=== PATIENT | female | born 1965 | race Caucasian/White ===

== ENCOUNTER 2017-03-07 09:45 | Inpatient (IN) | payer BC ==
[2017-03-07] MEDS ORDERED: Bupivacaine HCl 0.5%/Epinephrine 1:200,000/PF 30 ml Vial ONE (11:11)
[2017-03-07] MEDS ORDERED: Heparin 5,000 UNITS/ML VIAL ONE (11:30)
[2017-03-07] MEDS ORDERED: Fentanyl 100 MCG/2 ML VIAL ONE ×4 (11:32→13:44)
[2017-03-07] MEDS ORDERED: Midazolam HCl 2 mg/2 ml Vial ONE (11:32)
[2017-03-07] MEDS ORDERED: Propofol 200 MG/20 ML VIAL ONE (11:56)
[2017-03-07] MEDS ORDERED: Lidocaine 2% PF 10 ML AMP (For Epidural Use) ONE (11:56)
[2017-03-07] MEDS ORDERED: Glycopyrrolate 0.2 MG/ML 5 ML SYRINGE ONE (11:56)
[2017-03-07] MEDS ORDERED: Ondansetron HCl/PF 4 MG/2 ML Vial ONE ×2 (11:56→14:53)
[2017-03-07] MEDS ORDERED: Dexamethasone 20 MG/5 ML VIAL ONE (11:56)
[2017-03-07] MEDS ORDERED: Ondansetron HCl/PF 4 MG/2 ML Vial IVP PRN ×2 (12:38→12:52)
[2017-03-07] MEDS ORDERED: Promethazine HCl 25 MG/ML VIAL SLOW IVP PRN (12:38)
[2017-03-07] MEDS ORDERED: Promethazine HCl 25 MG/ML VIAL IM PRN ×3 (12:38→14:59)
[2017-03-07] MEDS ORDERED: Dextrose 5% in Water 1,000 ML IV PRN (12:52)
[2017-03-07] MEDS ORDERED: Dextrose 50% Abboject 50 ML SYRINGE SLOW IVP PRN ×2 (12:52)
[2017-03-07] MEDS ORDERED: diphenhydrAMINE HCl 50 MG/ML 1 ML VIAL IVP PRN ×2 (12:52→14:59)
[2017-03-07] MEDS ORDERED: Hydrocodone-Acetamin 15 ML UDCUP PO PRN (12:52)
[2017-03-07] MEDS ORDERED: Dextrose 5% in Water 1,000 ML IV SCH (13:00)
[2017-03-07] MEDS ORDERED: Promethazine HCl 25 MG/ML VIAL ONE (13:11)
--- NOTE | 2017-03-07 13:29 | OP ---
PREOPERATIVE DIAGNOSIS: Morbid obesity. SURGEON: Freddy Figueroa M.D. PROCEDURE PERFORMED: Laparoscopic sleeve gastrectomy with intraoperative esophagogastroscopy. INDICATIONS: The patient is a 52-year-old female who has been morbidly obese, attempted multiple we ight loss programs without success. FINDINGS: A 38 Portuguese bougie used. PROCEDURE IN DETAIL: After informed consent was obtained, the patient was taken to the operating ro om and given general endotracheal anesthesia. She was placed in the supine position. The abdomen w as prepped and draped in the usual fashion. Local anesthesia infiltrated subcutaneously and deep. A 12 mm incision was performed approximately 8 inches below the xiphoid slightly to the left. Veres s needle inserted. Drop test performed. Pneumoperitoneum was created to a volume of 2 liters of ca rbon dioxide. Utilizing a bladeless 12 mm trocar and 0 degree laparoscope, direct visual entry in t he abdominal cavity was performed. Pneumoperitoneum was then created to a pressure of 15 mmHg. The patient placed in steep reverse Trendelenburg position. Samra liver retractor inserted. Left lobe of liver retracted superiorly. The pylorus identified, a 12 mm port placed on the right beneat h it and two 12s placed left subcostal. The omentum was taken off the greater curvature 5 cm from t he pylorus utilizing the LigaSure. Short gastrics divided with the LigaSure and left crura defined with the LigaSure. A 38 Portuguese bougie inserted and directed into the antrum. A linear 60 mm green load stapler used to divide the antrum to the bougie, a gold load along the bougie, a series of blue s through the angle of His. Intraoperative endoscopy was performed. The video endoscope inserted u nder direct vision. The staple line inspected. There was no bleeding. Staple line then tested by inflating the stomach with pressurized air under water. There was no air leak. Stomach decompresse d. Scope removed. The remnant stomach removed from the abdomen through the left lateral port site. The fascia closed with 0 Vicryl suture and the GraNee needle. Hemostasis was assured. Trocars an d retractors removed. The skin closed with interrupted 4-0 Rapide. Steri-Strips applied. Sterile bandage applied. The patient tolerated the procedure well and transferred to recovery in good condi tion. Sponge and needle count verified correct x2.
[2017-03-07] MEDS ORDERED: Naloxone HCl 0.4 mg/ml Vial IV PRN (14:59)
[2017-03-07] MEDS ORDERED: Fentanyl 5000 MCG/250 ML CADD IVPB PRN (14:59)
[2017-03-07] MEDS ORDERED: Zolpidem Tartrate 5 MG TAB PO PRN (14:59)
[2017-03-07] MEDS ORDERED: diphenhydrAMINE HCl 50 MG/ML 1 ML VIAL IM PRN (14:59)
[2017-03-07] MEDS ORDERED: diphenhydrAMINE HCl 25 MG CAP PO PRN (14:59)
[2017-03-07] MEDS ORDERED: Communication Order-Pharmacy FS SCH (15:00)
[2017-03-07] MEDS ORDERED: Fentanyl 20 MCG/ML 250 ML ONE (15:04)
[2017-03-07 16:51] VITALS: BMI 47.1
[2017-03-07] MEDS: D5 1/2 NS w/20 mEq KCL 1,000 ML IV SCH ×2 (18:34→21:11)
[2017-03-08] MEDS: Ondansetron HCl/PF 4 MG/2 ML Vial IVP PRN ×2 (02:12→10:11)
[2017-03-08] MEDS: D5 1/2 NS w/20 mEq KCL 1,000 ML IV SCH (02:16)
[2017-03-08 06:18] LABS: #Monocytes 0.8 thou/uL (0.11-0.59); #Neutrophils 5.7 thou/uL (1.40-6.50); %Basophils 0.1 % (0.0-1.0); %Eosinophils 0.2 % (0.0-10.0); %Lymphocytes 23.1 % (21.0-51.0); %Monocytes 9.7 % (0.0-10.0); Hematocrit 41.4 % (36.0-47.0); Mean Platelet Volume 7.5 fL (7.4-10.4); Red Blood Cell (RBC) Count 4.73 mill/uL (4.20-5.40); White Blood Cell (WBC) Count 8.5 thou/uL (4.8-10.8)
[2017-03-08 06:37] LABS: Anion Gap 12 mmol/L (10-20); BUN (Urea Nitrogen) 10 mg/dL (9.8-20.1); Calc. Creatinine Clearance 153 mL/min (70-130); Calcium 8.8 mg/dL (7.8-10.44); Carbon Dioxide 26 mmol/L (22-29); Chloride 105 mmol/L (98-107); Estimated GFR-MDRD 72
[2017-03-08] MEDS ORDERED: Enoxaparin Sodium 40 MG/0.4 ML SYRINGE SC SCH (09:00)
[2017-03-08] MEDS: Pantoprazole 40 MG VIAL IVP SCH ×2 (10:12→10:21)
--- NOTE | 2017-03-08 10:30 | RAD ---
LIMITED UPPER GI WITH 15 ML ORAL GASTROGRAFIN: Date: 03/08/17 HISTORY: Post bariatric surgery, vertical sleeve gastrectomy. FINDINGS: There is prompt passage of contrast from the esophagus into the stomach. No contrast extravasation i s seen. IMPRESSION: No evidence of obstruction or leak. POS: JAYJAY
[2017-03-08] MEDS ORDERED: Ondansetron ODT 4 MG TAB PO PRN (10:58)
[2017-03-08] MEDS ORDERED: Hydrocodone-Acetamin 15 ML UDCUP PO PRN (11:22)
[2017-03-08] MEDS ORDERED: Promethazine HCl 25 MG/ML VIAL IM PRN (12:18)
[2017-03-08 16:10] VITALS: BP 131/83
[2017-03-08 17:01] VITALS: TEMP 98.2
--- NOTE | 2017-03-08 18:08 | DIS ---
DISCHARGE DIAGNOSIS: Morbid obesity. PROCEDURES DURING ADMISSION: Laparoscopic sleeve gastrectomy, postoperative Gastrografin swallow, a nd intraoperative esophagogastroscopy. HOSPITAL COURSE: The patient was admitted and taken to the operating room where she underwent a sle alexis gastrectomy with intraoperative esophagogastroscopy. Postoperatively, she had a Gastrografin sw allow, this was fine. She has been having some nausea, but it is improving. She is tolerating liqu ids well. She is discharged home on hydrocodone and Zofran. She will follow up with me in 2 weeks.
[2017-03-14] MEDS ORDERED: Hydrocodone-Acetamin 15 ML UDCUP PO PRN (15:03)
== END 2017-03-08 17:15 | disposition home or self-care (01) | DRG 621 ==
LOC: SDC 09:45 → SURG A 12:52
PROVIDERS: ADMIT Surgery; ATTEND Surgery
PROC: 0DB64Z3 Excision of Stomach, Percutaneous Endoscopic Approach, Vertical (ICD-10-PCS; principal; 2017-03-07)
DX: E66.01 Morbid (severe) obesity due to excess calories (principal); E78.5 Hyperlipidemia, unspecified; Z68.42 Body mass index [BMI] 45.0-49.9, adult
CPT/HCPCS: 36415; 74241; 80048; 85025; 88307; 88312; C9113; J0670; J1100; J1644; J1650; J2001; J2250; J2405; J2550; J2704; J3010; Q0162